=== PATIENT | male | born 1980 | race Caucasian/White ===

== ENCOUNTER 2021-02-04 21:10 | Inpatient (IN) | payer MEDICAID ==
[~2021-02-04] VITALS: Ht 170.2 cm; Wt 136.4 kg
[2021-02-04 22:29] LABS: BASOPHILS % (AUTO) 0.3 % (0-1); EOSINOPHILS % (AUTO) 0 % (0-6); HEMATOCRIT 56.4 % (42.0-52.0); LYMPHOCYTES # (AUTO) 0.6 X10'3 (1.1-4.8); LYMPHOCYTES % (AUTO) 7.2 % (21-51); MEAN CORPUSCULAR HEMOGLOBIN 35.3 PG (27.0-31.0); MEAN CORPUSCULAR HGB CONC 34.3 g/dL (33.0-36.5); MEAN CORPUSCULAR VOLUME 102.8 FL (78-98); MEAN PLATELET VOLUME 9.1 FL (7.4-10.4); MONOCYTES # (AUTO) 0.5 X10'3 (0-0.9); MONOCYTES % (AUTO) 6.2 % (2-12); NEUTROPHILS # (AUTO) 6.6 X10'3 (1.8-7.7); NEUTROPHILS % (AUTO) 86.3 % (42-75); PLATELET COUNT 178 X10'3 (140-440); RED BLOOD COUNT 5.49 X10'6 (4.70-6.10); RED CELL DISTRIBUTION WIDTH 13.6 % (11.5-14.5); WHITE BLOOD COUNT 7.7 X10'3 (4.5-11.0)
[2021-02-04 22:35] LABS: HEMOGLOBIN 19.4 g/dl (14.0-17.9)
[2021-02-04] MEDS ORDERED: normal saline 1000ML IV soln IVB ONE (22:45)
[2021-02-04] MEDS ORDERED: azithromycin/NS 500mg/250ml 250 ML IV ONE (22:45)
[2021-02-04] MEDS ORDERED: CefTRIAXone/D5W-Rocephin 1gm 50 ML IV ONE (22:45)
[2021-02-04 22:47] LABS: ALANINE AMINOTRANSFERASE 26 U/L (12-78); ALBUMIN 3.2 G/DL (3.4-5.0); ALBUMIN/GLOBULIN RATIO 0.7 (1.1-1.5); ALKALINE PHOSPHATASE 71 IU/L (46-116); ANION GAP 10 (8-16); ASPARTATE AMINO TRANSFERASE 54 U/L (10-37); BILIRUBIN,TOTAL 1.1 MG/DL (0.1-1.0); BLOOD UREA NITROGEN 11 MG/DL (7-18); BUN/CREATININE RATIO 10.7 (5.4-32.0); C-REACTIVE PROTEIN 13.91 MG/DL (0.0-0.5); CALCIUM 8.2 MG/DL (8.5-10.1); CHLORIDE 100 MMOL/L (99-107); CREATININE 1.03 MG/DL (0.60-1.10); GLUCOSE 118 MG/DL (70-104); POTASSIUM 4.3 MMOL/L (3.5-5.1); SODIUM 136 MMOL/L (135-145); TOTAL CARBON DIOXIDE 26.4 MMOL/L (24-32); TOTAL PROTEIN 7.9 G/DL (6.4-8.2); eGFR 81 ML/MIN
[2021-02-04 22:53] LABS: D-DIMER 1.13 MG/L FEU (0-0.50)
--- NOTE | 2021-02-04 23:00 | NUR ---
Hospitalist at bedside for patient assessment and discussion of plan of care
[2021-02-04] MEDS ORDERED: iohexol 350MG/ML 100ml bottle IV ONE (23:03)
--- NOTE | 2021-02-04 23:15 | NUR ---
Patient taken to CT via wheelchair- tolerated transfer well.
[2021-02-04 23:54] LABS: ABG BASE EXCESS -2.9 mmol/L (-2.0-2.0); ABG OXYGEN SATURATION 94.9 % (94-97); ABG PO2 (T) 74.8 mmHg (75.0-100.0); FCOHb 0.3 % (0.0-3.9); FLOW 2 L/min; FMetHb 0.5 % (0.0-1.5); FO2Hb 94.1 % (94-97); TOTAL HEMOGLOBIN 19.8 G/dl (14.0-18.0)
[2021-02-05] MEDS ORDERED: diphenhydrAMINE 50 mg/ml inj IV PRN (01:05)
[2021-02-05] MEDS ORDERED: ondansetron 4mg rapidly disintigrating tab PO PRN (01:05)
[2021-02-05] MEDS ORDERED: morphine 2 MG/ML inj. syringe IV PRN ×2 (01:05)
[2021-02-05] MEDS ORDERED: mag hydrox/Alum hydrox/simeth 30ml oral suspension PO PRN (01:05)
[2021-02-05] MEDS ORDERED: HYDROmorphone inj. 0.5 MG/0.5 ML DISP.SYRIN IV PRN (01:05)
[2021-02-05] MEDS ORDERED: bisacodyl 10mg suppository rectal RC PRN (01:05)
[2021-02-05] MEDS ORDERED: diphenhydrAMINE 25mg capsule PO PRN (01:05)
[2021-02-05] MEDS ORDERED: ondansetron/PF 4mg/2ml inj IV PRN (01:05)
[2021-02-05] MEDS: normal saline 1000ml 1,000 ML IV SCH ×3 (01:05→21:05)
[2021-02-05] MEDS ORDERED: HYDROcodone/acetaminophen 5mg/325mg tablet PO PRN (01:05)
[2021-02-05] MEDS ORDERED: acetaminophen 650mg rectal suppository RC PRN (01:05)
[2021-02-05] MEDS ORDERED: HYDROcodone/acetaminophen 10/325mg tab PO PRN (01:05)
[2021-02-05 01:38] LABS: HEMOGLOBIN A1C 5.9 % (4.5-6.2)
[2021-02-05 01:44] LABS: PHOSPHORUS 2.7 MG/DL (2.3-4.5)
--- NOTE | 2021-02-05 01:46 | NUR ---
PER MD TOWNSEND OK TO CHANGE ADMIT ORDER TO ORTHO/NEURO FLOOR WITH TELE MONITORING
[2021-02-05] MEDS ORDERED: ipratropium/albuterol 3ml nebule NEB SCH (03:00)
[2021-02-05 04:10] VITALS: BP 146/76
--- NOTE | 2021-02-05 05:10 | NUR ---
Received report. from TEETEE Yoo 0405: Patient arrived to unit via gurney. Patient ambulated to bed. Patient went to the bathroom shortly after arrival to unit and became short of breath. Oxygen sat was 83% on 2 L, patient ended up on 6L due to having a hard time recouping. His saturations were 92% on 6L. Respiratory was paged but have not shown up at this time. Patient is in bed in with head of bed raised and continues to sat at 92%. Will continue to monitor.
--- NOTE | 2021-02-05 06:30 | NUR ---
Problems reprioritized. Patient report given, questions answered & plan of care reviewed with TEETEE Hendrix.
[2021-02-05 06:57] VITALS: BP 152/88
[2021-02-05] MEDS: pantoprazole 40mg Tablet.DR PO SCH (07:31)
[2021-02-05] MEDS: docusate sod 100mg capsule PO SCH ×2 (07:31→19:07)
[2021-02-05] MEDS: dexamethasone sod phosphate 4mg/ml inj. IV SCH ×2 (07:36→19:07)
[2021-02-05] MEDS ORDERED: heparin, porcine 5000 units/ml vial SQ SCH (08:00)
[2021-02-05] MEDS ORDERED: CefTRIAXone/D5W-Rocephin 1gm 50 ML IV SCH (08:00)
[2021-02-05] MEDS ORDERED: dexamethasone inj 6 MG in normal saline 50ml IV soln 50 ML IV SCH (08:00)
[2021-02-05] MEDS ORDERED: azithromycin/NS 500mg/250ml 250 ML IV SCH (08:00)
[2021-02-05] MEDS ORDERED: ALBUTEROL INHALER 1 PUFF/90 MCG INHALER IH SCH (09:00)
[2021-02-05] MEDS ORDERED: NO HOME MEDS (09:55)
[2021-02-05 10:00] VITALS: BP 121/67
[2021-02-05] MEDS ORDERED: REMDESIVIR (EUA) 100mg inj. 200 MG in normal saline 100ml IV soln 60 ML IV ONE (10:40)
[2021-02-05] MEDS ORDERED: REMDESIVIR (EUA) 100mg inj. 200 MG in normal saline 100ml IV soln 100 ML IV ONE (10:40)
--- NOTE | 2021-02-05 15:08 | NUR ---
Attempted to return a phone call from patient's mom Mera at [phone], no answer just ringing
--- NOTE | 2021-02-05 15:30 | NUR ---
Calorie count consult: Likely not intended to be calorie count consult. Pt denied wt loss or decrease in appetite per malnutrition risk screen with RN. Pt on a regular diet, pending documentation of PO intake. No documented edema or wounds. Will continue to follow and monitor need for nutrition intervention. Addendum: 02/05/21 at [address] Amended: Links added.
--- NOTE | 2021-02-05 15:39 | NUR ---
Paged RT requesting to change nasal cannula to high flow nasal cannula due to persistent need to high oxygen requirement
[2021-02-05 18:00] VITALS: BP 121/75
--- NOTE | 2021-02-05 18:10 | NUR ---
Patient in room ORTHO 4018. I have received report from TEETEE Gustafson and had the opportunity to ask questions and assume patient care.
--- NOTE | 2021-02-05 18:30 | NUR ---
Problems reprioritized. Patient report given, questions answered & plan of care reviewed with Vamsi KINGSLEY.
[2021-02-05] MEDS: enoxaparin 40mg/0.4ml syringe SUBCUT SCH (19:08)
[2021-02-05 22:00] VITALS: BP 137/80
[2021-02-05] MEDS: temazepam 15mg capsule PO PRN (22:10)
[2021-02-06 05:00] VITALS: BP 133/63
[2021-02-06] MEDS: ALBUTEROL INHALER 1 PUFF/90 MCG INHALER IH PRN (05:13)
[2021-02-06] MEDS: acetaminophen 325mg tablet PO PRN (05:13)
--- NOTE | 2021-02-06 05:21 | NUR ---
Paged RT: RE: Harvinder Allen RM 0462: Pt is satting 83-86% sustained on hi-flow 15L. Gave albuterol MDI, no improvement. Pt feeling short of breath. Can you please see him DAVIN? Thanks
--- NOTE | 2021-02-06 06:10 | NUR ---
Problems reprioritized. Patient report given, questions answered & plan of care reviewed with TEETEE Wilson.
--- NOTE | 2021-02-06 06:50 | NUR ---
Patient in room ORTHO 4018. I have received report from Vamsi KINGSLEY and had the opportunity to ask questions and assume patient care.
[2021-02-06 07:54] LABS: D-DIMER 0.34 MG/L FEU (0-0.50)
[2021-02-06 07:57] LABS: BASOPHILS % (AUTO) 0.2 % (0-1); EOSINOPHILS % (AUTO) 0 % (0-6); HEMATOCRIT 53.2 % (42.0-52.0); LYMPHOCYTES # (AUTO) 0.8 X10'3 (1.1-4.8); LYMPHOCYTES % (AUTO) 6.8 % (21-51); MEAN CORPUSCULAR HEMOGLOBIN 35.2 PG (27.0-31.0); MEAN CORPUSCULAR VOLUME 103.4 FL (78-98); MEAN PLATELET VOLUME 9.3 FL (7.4-10.4); MONOCYTES # (AUTO) 0.6 X10'3 (0-0.9); MONOCYTES % (AUTO) 4.9 % (2-12); NEUTROPHILS # (AUTO) 10.8 X10'3 (1.8-7.7); NEUTROPHILS % (AUTO) 88.1 % (42-75); PLATELET COUNT 256 X10'3 (140-440); RED BLOOD COUNT 5.14 X10'6 (4.70-6.10); RED CELL DISTRIBUTION WIDTH 13.5 % (11.5-14.5); WHITE BLOOD COUNT 12.3 X10'3 (4.5-11.0)
[2021-02-06] MEDS: dexamethasone sod phosphate 4mg/ml inj. IV SCH (08:00)
[2021-02-06] MEDS: docusate sod 100mg capsule PO SCH (08:00)
[2021-02-06] MEDS: pantoprazole 40mg Tablet.DR PO SCH (08:00)
[2021-02-06] MEDS: enoxaparin 40mg/0.4ml syringe SUBCUT SCH ×2 (08:00→21:00)
[2021-02-06] MEDS: REMDESIVIR (EUA) 100mg inj. 100 MG in normal saline 100ml IV soln 80 ML IV SCH (08:00)
[2021-02-06 08:09] LABS: HEMOGLOBIN 18.1 g/dl (14.0-17.9)
[2021-02-06 08:15] LABS: ALANINE AMINOTRANSFERASE 37 U/L (12-78); ALBUMIN 2.8 G/DL (3.4-5.0); ALBUMIN/GLOBULIN RATIO 0.7 (1.1-1.5); ALKALINE PHOSPHATASE 61 IU/L (46-116); ANION GAP 10 (8-16); ASPARTATE AMINO TRANSFERASE 41 U/L (10-37); BILIRUBIN,TOTAL 0.5 MG/DL (0.1-1.0); BLOOD UREA NITROGEN 11 MG/DL (7-18); BUN/CREATININE RATIO 14.5 (5.4-32.0); C-REACTIVE PROTEIN 5.46 MG/DL (0.0-0.5); CALCIUM 8.3 MG/DL (8.5-10.1); CHLORIDE 106 MMOL/L (99-107); CHOL/HDL RATIO 9.1 (0.00-4.99); CHOLESTEROL 145 MG/DL (0-200); CREATININE 0.76 MG/DL (0.60-1.10); GLUCOSE 131 MG/DL (70-104); HDL CHOLESTEROL 16 MG/DL (35-60); LACTATE DEHYDROGENASE 448 U/L (85-227); LDL CHOLESTEROL 111 MG/DL (50-100); POTASSIUM 4.3 MMOL/L (3.5-5.1); SODIUM 143 MMOL/L (135-145); TOTAL CARBON DIOXIDE 27.5 MMOL/L (24-32); TOTAL PROTEIN 7.1 G/DL (6.4-8.2); TRIGLYCERIDES 95 MG/DL (20-135); eGFR > 90 ML/MIN
--- NOTE | 2021-02-06 09:31 | NUR ---
PAGER ID: [phone] MESSAGE: Jaime Ball 4018 Frease HGB today 18.1 down from 19.4
--- NOTE | 2021-02-06 09:32 | NUR ---
Paged RT for urgent ABG orders from Dr Queen
[2021-02-06 09:57] LABS: ABG BASE EXCESS -1.4 mmol/L (-2.0-2.0); ABG HCO3 22.5 mmol/L (22.0-26.0); ABG OXYGEN SATURATION 92.9 % (94-97); ABG PO2 (T) 63.7 mmHg (75.0-100.0); ALLEN'S TEST POSITIVE; FCOHb 0.3 % (0.0-3.9); FLOW 15 L/min; FMetHb 0.3 % (0.0-1.5); FO2Hb 92.3 % (94-97); TOTAL HEMOGLOBIN 18.5 G/dl (14.0-18.0)
[2021-02-06 10:00] VITALS: BP 109/72
--- NOTE | 2021-02-06 14:31 | NUR ---
Tried to return patients sister Ella's call l/w on v/m to call back
[2021-02-06 18:00] VITALS: BP 142/93
--- NOTE | 2021-02-06 18:21 | NUR ---
Problems reprioritized. Patient report given, questions answered & plan of care reviewed with Mariel KINGSLEY.
--- NOTE | 2021-02-06 18:30 | NUR ---
Patient in room ORTHO 4018. I have received report from Katie KINGSLEY and had the opportunity to ask questions and assume patient care.
[2021-02-06] MEDS ORDERED: dexamethasone 4mg/ml inj IM SCH (20:00)
[2021-02-06] MEDS: dexamethasone 4mg/ml inj IV SCH (21:00)
[2021-02-06 22:00] VITALS: BP 138/87
[2021-02-06] MEDS: temazepam 15mg capsule PO PRN (22:11)
[2021-02-07 05:54] LABS: D-DIMER 0.26 MG/L FEU (0-0.50)
[2021-02-07 05:58] LABS: ANION GAP 6 (8-16); BASOPHILS % (AUTO) 0.1 % (0-1); BLOOD UREA NITROGEN 9 MG/DL (7-18); CHLORIDE 105 MMOL/L (99-107); CREATININE 0.69 MG/DL (0.60-1.10); EOSINOPHILS % (AUTO) 0 % (0-6); GLUCOSE 153 MG/DL (70-104); HEMATOCRIT 53.5 % (42.0-52.0); LYMPHOCYTES # (AUTO) 0.7 X10'3 (1.1-4.8); LYMPHOCYTES % (AUTO) 6.9 % (21-51); MEAN CORPUSCULAR HEMOGLOBIN 35.3 PG (27.0-31.0); MEAN CORPUSCULAR HGB CONC 33.7 g/dL (33.0-36.5); MEAN CORPUSCULAR VOLUME 104.6 FL (78-98); MEAN PLATELET VOLUME 9.1 FL (7.4-10.4); MONOCYTES # (AUTO) 0.6 X10'3 (0-0.9); MONOCYTES % (AUTO) 5.4 % (2-12); NEUTROPHILS # (AUTO) 8.9 X10'3 (1.8-7.7); NEUTROPHILS % (AUTO) 87.6 % (42-75); PLATELET COUNT 287 X10'3 (140-440); POTASSIUM 4.3 MMOL/L (3.5-5.1); RED BLOOD COUNT 5.11 X10'6 (4.70-6.10); RED CELL DISTRIBUTION WIDTH 13.1 % (11.5-14.5); SODIUM 141 MMOL/L (135-145); TOTAL CARBON DIOXIDE 30.4 MMOL/L (24-32); WHITE BLOOD COUNT 10.1 X10'3 (4.5-11.0)
[2021-02-07 05:59] LABS: ALANINE AMINOTRANSFERASE 29 U/L (12-78); ALBUMIN 2.7 G/DL (3.4-5.0); ALBUMIN/GLOBULIN RATIO 0.7 (1.1-1.5); ALKALINE PHOSPHATASE 62 IU/L (46-116); ASPARTATE AMINO TRANSFERASE 47 U/L (10-37); BILIRUBIN,TOTAL 0.4 MG/DL (0.1-1.0); C-REACTIVE PROTEIN 2.38 MG/DL (0.0-0.5); CALCIUM 8.2 MG/DL (8.5-10.1); LACTATE DEHYDROGENASE 515 U/L (85-227); TOTAL PROTEIN 6.8 G/DL (6.4-8.2); eGFR > 90 ML/MIN
[2021-02-07 06:00] VITALS: BP 137/96
--- NOTE | 2021-02-07 06:22 | NUR ---
Problems reprioritized. Patient report given, questions answered & plan of care reviewed with Paloma KINGSLEY.
[2021-02-07] MEDS: acetaminophen 325mg tablet PO PRN (06:36)
[2021-02-07] MEDS: REMDESIVIR (EUA) 100mg inj. 100 MG in normal saline 100ml IV soln 80 ML IV SCH (09:53)
[2021-02-07] MEDS: pantoprazole 40mg Tablet.DR PO SCH (09:54)
[2021-02-07] MEDS: dexamethasone 4mg/ml inj IV SCH ×2 (09:54→21:06)
[2021-02-07] MEDS: enoxaparin 40mg/0.4ml syringe SUBCUT SCH ×2 (09:56→21:07)
[2021-02-07 12:38] VITALS: BP 120/83
--- NOTE | 2021-02-07 18:20 | NUR ---
Problems reprioritized. Patient report given, questions answered & plan of care reviewed with Danielle KINGSLEY.
[2021-02-07 19:00] VITALS: BP 137/78
[2021-02-07 22:00] VITALS: BP 125/74
--- NOTE | 2021-02-07 23:10 | NUR ---
RT paged to help with refilling water on high flow salter. Upon RT arrival, RN states pt also keeps pulling his nasal canula off. Pt assessed and is in increased respiratory distress, nasal cannula was pulled off and spo2 60% on room air. Immediately placed pt back on salter high flow at 15+ liters. Pt was still not improving past 75%. I then placed a non-rebreather mask at 15 lpm over his high flow in his mouth and spo2 increased to 94%. Spo2 on observation seems to stay between 88%-91% now. Albuterol MDI 2 puffs also given. RN notified and will continue to monitor
[2021-02-07] MEDS: ALBUTEROL INHALER 1 PUFF/90 MCG INHALER IH PRN (23:14)
[2021-02-08] MEDS ORDERED: benzocaine/menthol oral lozeng 1 EACH BOX MM PRN (01:20)
[2021-02-08] MEDS: temazepam 15mg capsule PO PRN (01:27)
[2021-02-08 05:45] LABS: BASOPHILS % (AUTO) 0.3 % (0-1); EOSINOPHILS % (AUTO) 0 % (0-6); HEMATOCRIT 55.3 % (42.0-52.0); LYMPHOCYTES # (AUTO) 0.8 X10'3 (1.1-4.8); LYMPHOCYTES % (AUTO) 7.9 % (21-51); MEAN CORPUSCULAR HEMOGLOBIN 35.2 PG (27.0-31.0); MEAN CORPUSCULAR HGB CONC 33.7 g/dL (33.0-36.5); MEAN CORPUSCULAR VOLUME 104.5 FL (78-98); MEAN PLATELET VOLUME 8.8 FL (7.4-10.4); MONOCYTES # (AUTO) 0.6 X10'3 (0-0.9); MONOCYTES % (AUTO) 5.5 % (2-12); NEUTROPHILS # (AUTO) 8.8 X10'3 (1.8-7.7); NEUTROPHILS % (AUTO) 86.3 % (42-75); PLATELET COUNT 316 X10'3 (140-440); RED BLOOD COUNT 5.29 X10'6 (4.70-6.10); RED CELL DISTRIBUTION WIDTH 13.2 % (11.5-14.5); WHITE BLOOD COUNT 10.2 X10'3 (4.5-11.0)
[2021-02-08 05:55] LABS: HEMOGLOBIN 18.6 g/dl (14.0-17.9)
[2021-02-08 06:08] LABS: ALANINE AMINOTRANSFERASE 48 U/L (12-78); ALBUMIN 2.8 G/DL (3.4-5.0); ALBUMIN/GLOBULIN RATIO 0.7 (1.1-1.5); ALKALINE PHOSPHATASE 72 IU/L (46-116); ANION GAP 3 (8-16); ASPARTATE AMINO TRANSFERASE 57 U/L (10-37); BILIRUBIN,TOTAL 0.5 MG/DL (0.1-1.0); BLOOD UREA NITROGEN 9 MG/DL (7-18); BUN/CREATININE RATIO 10.7 (5.4-32.0); CALCIUM 8.3 MG/DL (8.5-10.1); CHLORIDE 104 MMOL/L (99-107); CREATININE 0.84 MG/DL (0.60-1.10); GLUCOSE 131 MG/DL (70-104); LACTATE DEHYDROGENASE 648 U/L (85-227); POTASSIUM 4.6 MMOL/L (3.5-5.1); SODIUM 141 MMOL/L (135-145); TOTAL CARBON DIOXIDE 33.9 MMOL/L (24-32); TOTAL PROTEIN 7.1 G/DL (6.4-8.2); eGFR > 90 ML/MIN
[2021-02-08 06:22] LABS: D-DIMER 0.62 MG/L FEU (0-0.50)
--- NOTE | 2021-02-08 06:50 | NUR ---
Attempted to call night time hospitalist but cell phone number was not correct, patient is SOB respiratory rate in the 30s. Alert and oriented, VSS. Will call day time MD and anticipate new orders.
--- NOTE | 2021-02-08 06:50 | NUR ---
Patient in room ORTHO 4018. I have received report from Marti KINGSLEY and had the opportunity to ask questions and assume patient care.
[2021-02-08 06:51] VITALS: BP 101/79
--- NOTE | 2021-02-08 07:07 | NUR ---
PAGER ID: [phone] MESSAGE: [phone] Tiffany, here with darien gamboa. Increased work of breathing, now on 30 liters of oxygen. Respiratory rate in the 30s Oxygen dropped in the 60s. Can i get an ABG ordered and put him on a tele with a continuous pulse ox? Joshua Moreira Addendum: 02/08/21 at 0715 by Garima Cochran RN Per Gabrielu place patient on bipap.
--- NOTE | 2021-02-08 07:16 | NUR ---
Placed page to RT to place patient on Bi-PAP.
[2021-02-08] MEDS: pantoprazole 40mg Tablet.DR PO SCH (07:30)
[2021-02-08] MEDS: enoxaparin 40mg/0.4ml syringe SUBCUT SCH ×2 (08:00→19:34)
[2021-02-08] MEDS: dexamethasone 4mg/ml inj IV SCH ×2 (08:00→19:34)
[2021-02-08] MEDS: REMDESIVIR (EUA) 100mg inj. 100 MG in normal saline 100ml IV soln 80 ML IV SCH (08:00)
--- NOTE | 2021-02-08 09:00 | NUR ---
Upon arriving for my shift this morning patient was in noticeable respiratory distress with a respiratory rate in the 30s on 15 liters/min of high flow on a salter and 15 liters/min on a non-rebreather. Night time hospitalist was never made aware of patients decompensation overnight. Paged Dr. Castle first thing this morning and received orders to place on bi-pap, he did not want blood gases at this time. Respiratory came to evaluate patient asking questions about bi-pap need and why we are not doing blood gases. Upon application of cpap patient was noticeably more comfortable, work of breathing decreased and he stated he felt much more comfortable. Dr. Barnett came to see patient and noted his decompensation stated that if he continues to require more oxygen he may need to go to the ICU. Patient is resting comfortably at this time, respiratory rate 26, o2 90-96% on a cpap with 70% fi02.
[2021-02-08 10:27] LABS: ABG BASE EXCESS 4.5 mmol/L (-2.0-2.0); ABG HCO3 30.5 mmol/L (22.0-26.0); ABG OXYGEN SATURATION 93.3 % (94-97); ABG PCO2 (T) 48.6 mmHg (35.0-48.0); ABG PO2 (T) 65.4 mmHg (75.0-100.0); ALLEN'S TEST POSITIVE; FCOHb 0.3 % (0.0-3.9); FMetHb 0.4 % (0.0-1.5); FO2Hb 92.6 % (94-97); TOTAL HEMOGLOBIN 19.5 G/dl (14.0-18.0)
[2021-02-08 12:22] VITALS: BP 124/71
--- NOTE | 2021-02-08 12:22 | NUR ---
PAGER ID: [phone] MESSAGE: [phone] Frease, respiratory rate is in the high 40s low 50s. 02 saturations are still stable on cpap, can he get a low dose of Ativan or morphine to help with his work of breathing? phillip [phone]
[2021-02-08] MEDS: morphine 2 MG/ML inj. syringe IV PRN ×2 (12:35→20:13)
[2021-02-08] MEDS: acetaminophen 325mg tablet PO PRN (12:36)
--- NOTE | 2021-02-08 12:57 | NUR ---
After receiving an order for IV morphine to decrease the patients work of breathing as his respiratory rate was 45 respirations per minute I went in to administer this and tylenol for fever. While in the room the patient asked if he could take a break from the CPAP mask to urinate, took off CPAP and applied 15 liters on a high flow salter with 15 liters on a non rebreather as well, when the patient stood up to urinate his heart rate went from 65 to 110 and oxygen quickly decreased to 68. Patient sat back down on the bed, cyanotic in the face, instructed the patient to try to slow his breathing down. oxygen saturations did recover slowly back up to 85, switched over to the CPAP and increased to 100% fi02 until saturations maintained in the 90s. Resting comfortably now, cpap back at 70% fi02.
--- NOTE | 2021-02-08 13:04 | NUR ---
PAGER ID: [phone] MESSAGE: [phone] Tiffany, went in to help use the urinal and his heart rate went from 60 to 110, 02 dropped to 68. Back up to 93% now, can I place him on a tele please? phillip [phone]
--- NOTE | 2021-02-08 14:44 | NUR ---
Patient is resting comfortably now after receiving IV morphine to help with work of breathing. Hospitalist does not feel that it is necessary to place on tele even with tachycardia on exertion. Monitoring patient closely.
[2021-02-08 17:04] VITALS: BP 133/81
--- NOTE | 2021-02-08 18:27 | NUR ---
Problems reprioritized. Patient report given, questions answered & plan of care reviewed with Netta KINGSLEY.
[2021-02-08 22:00] VITALS: BP 126/65
[2021-02-09 05:57] LABS: BASOPHILS % (AUTO) 0.2 % (0-1); EOSINOPHILS % (AUTO) 0 % (0-6); HEMATOCRIT 51.3 % (42.0-52.0); HEMOGLOBIN 17.5 g/dl (14.0-17.9); LYMPHOCYTES % (AUTO) 9.6 % (21-51); MEAN CORPUSCULAR HEMOGLOBIN 35.5 PG (27.0-31.0); MEAN CORPUSCULAR HGB CONC 34.1 g/dL (33.0-36.5); MEAN CORPUSCULAR VOLUME 103.9 FL (78-98); MONOCYTES # (AUTO) 0.7 X10'3 (0-0.9); MONOCYTES % (AUTO) 6.4 % (2-12); NEUTROPHILS # (AUTO) 8.8 X10'3 (1.8-7.7); NEUTROPHILS % (AUTO) 83.8 % (42-75); PLATELET COUNT 330 X10'3 (140-440); RED BLOOD COUNT 4.94 X10'6 (4.70-6.10); RED CELL DISTRIBUTION WIDTH 13.3 % (11.5-14.5); WHITE BLOOD COUNT 10.5 X10'3 (4.5-11.0)
[2021-02-09 06:11] LABS: ALANINE AMINOTRANSFERASE 55 U/L (12-78); ALBUMIN 2.5 G/DL (3.4-5.0); ALBUMIN/GLOBULIN RATIO 0.6 (1.1-1.5); ALKALINE PHOSPHATASE 65 IU/L (46-116); ANION GAP 7 (8-16); ASPARTATE AMINO TRANSFERASE 60 U/L (10-37); BILIRUBIN,TOTAL 0.6 MG/DL (0.1-1.0); BLOOD UREA NITROGEN 21 MG/DL (7-18); BUN/CREATININE RATIO 26.6 (5.4-32.0); C-REACTIVE PROTEIN 0.85 MG/DL (0.0-0.5); CALCIUM 8.2 MG/DL (8.5-10.1); CHLORIDE 102 MMOL/L (99-107); CREATININE 0.79 MG/DL (0.60-1.10); GLUCOSE 176 MG/DL (70-104); LACTATE DEHYDROGENASE 474 U/L (85-227); POTASSIUM 4.5 MMOL/L (3.5-5.1); SODIUM 138 MMOL/L (135-145); TOTAL CARBON DIOXIDE 28.9 MMOL/L (24-32); TOTAL PROTEIN 6.4 G/DL (6.4-8.2); eGFR > 90 ML/MIN
[2021-02-09 06:27] LABS: D-DIMER 0.47 MG/L FEU (0-0.50)
[2021-02-09 06:39] VITALS: BP 146/86
[2021-02-09] MEDS: dexamethasone 4mg/ml inj IV SCH ×2 (07:41→18:57)
[2021-02-09] MEDS: pantoprazole 40mg Tablet.DR PO SCH (07:42)
[2021-02-09] MEDS: REMDESIVIR (EUA) 100mg inj. 100 MG in normal saline 100ml IV soln 80 ML IV SCH (07:42)
[2021-02-09] MEDS: enoxaparin 40mg/0.4ml syringe SUBCUT SCH ×2 (07:42→18:57)
[2021-02-09] MEDS: morphine 2 MG/ML inj. syringe IV PRN ×2 (09:05→16:42)
[2021-02-09 09:41] VITALS: BP 138/99
--- NOTE | 2021-02-09 12:33 | NUR ---
Titrated patients fi02 down to 50% from 60% this morning.
[2021-02-09 13:00] VITALS: BP 133/89
--- NOTE | 2021-02-09 15:51 | NUR ---
Nutrition Consult"pt covid cpap dependent cant' take off for long periods of time": Pt admit DX COVID-19 PNA, HTN, polycythemia, and obesity hypoventilation syndrome per EMR. PO 75-100% avg regular diet this admit outside of 0% two meals yesterday following period of increased SOB though returned to 75% so far today. Pt currently meeting nutrient needs. LBM 02/05; would benefit from routine bowel care this admit. Will continue to monitor. Rec: 1. continue regular diet 2. monitor for ONS needs IF PO declines 3. routine bowel care 4. weekly wts Addendum: 02/09/21 at [address] Amended: Links added.
--- NOTE | 2021-02-09 16:00 | NUR ---
PAGER ID: [phone] MESSAGE: [phone] Tiffany, respiratory therapist wants to change him from CPAP to BIpap mode on the bipap, can I order a blood gas in an hour once we change him over? thanks, phillip [phone]
--- NOTE | 2021-02-09 16:06 | NUR ---
Respiratory at bedside, wanting to place patient on bipap instead of cpap because he is more comfortable breathing on bipap mode. Respiratory rate in the 40s on CPAP and on bipap he is breathing 25-30 respirations/minute. Advised to do what he thought was best for the patient and his comfort, changed to bipap and will repeat blood gases in one hour.
--- NOTE | 2021-02-09 17:11 | NUR ---
RT at bedside to draw blood gases, I increased the fi02 back to 60% as his oxygen saturation was 87, back up to 92 now however on 60% fi02.
[2021-02-09 17:21] LABS: ABG HCO3 28.2 mmol/L (22.0-26.0); ABG OXYGEN SATURATION 91.8 % (94-97); ABG PCO2 (T) 44.3 mmHg (35.0-48.0); ABG PO2 (T) 62.3 mmHg (75.0-100.0); ALLEN'S TEST POSITIVE; FCOHb 0.2 % (0.0-3.9); FMetHb 0.5 % (0.0-1.5); FO2Hb 91.2 % (94-97); RESPIRATORY RATE 20 b/min; TIDAL VOLUME 563 mL; TOTAL HEMOGLOBIN 19.9 G/dl (14.0-18.0)
[2021-02-09] MEDS: acetaminophen 325mg tablet PO PRN (17:50)
--- NOTE | 2021-02-09 18:14 | NUR ---
Problems reprioritized. Patient report given, questions answered & plan of care reviewed with Netta KINGSLEY.
[2021-02-09 18:16] VITALS: BP 114/62
[2021-02-09] MEDS ORDERED: LIDOcaine 2% 10ml TOPICAL JELLY (Urojet) TP ONE (18:40)
[2021-02-09 22:00] VITALS: BP 125/78
[2021-02-10] MEDS: morphine 2 MG/ML inj. syringe IV PRN ×3 (01:05→20:42)
[2021-02-10 05:52] VITALS: BP 129/77
--- NOTE | 2021-02-10 06:04 | NUR ---
Patient in room ORTHO 4018. I have received report from Netta KINGSLEY and had the opportunity to ask questions and assume patient care.
[2021-02-10 06:12] LABS: D-DIMER 0.36 MG/L FEU (0-0.50)
[2021-02-10 06:13] LABS: BASOPHILS % (AUTO) 0.1 % (0-1); EOSINOPHILS % (AUTO) 0.2 % (0-6); HEMATOCRIT 52.2 % (42.0-52.0); HEMOGLOBIN 17.7 g/dl (14.0-17.9); LYMPHOCYTES # (AUTO) 1.3 X10'3 (1.1-4.8); LYMPHOCYTES % (AUTO) 10.6 % (21-51); MEAN CORPUSCULAR HEMOGLOBIN 35.2 PG (27.0-31.0); MEAN CORPUSCULAR VOLUME 103.7 FL (78-98); MONOCYTES # (AUTO) 0.6 X10'3 (0-0.9); MONOCYTES % (AUTO) 5.2 % (2-12); NEUTROPHILS # (AUTO) 10.1 X10'3 (1.8-7.7); NEUTROPHILS % (AUTO) 83.9 % (42-75); PLATELET COUNT 398 X10'3 (140-440); RED BLOOD COUNT 5.03 X10'6 (4.70-6.10); RED CELL DISTRIBUTION WIDTH 13.3 % (11.5-14.5); WHITE BLOOD COUNT 12.1 X10'3 (4.5-11.0)
[2021-02-10 06:29] LABS: ALANINE AMINOTRANSFERASE 48 U/L (12-78); ALBUMIN 2.6 G/DL (3.4-5.0); ALBUMIN/GLOBULIN RATIO 0.7 (1.1-1.5); ALKALINE PHOSPHATASE 66 IU/L (46-116); ANION GAP 5 (8-16); ASPARTATE AMINO TRANSFERASE 42 U/L (10-37); BILIRUBIN,TOTAL 0.5 MG/DL (0.1-1.0); BLOOD UREA NITROGEN 19 MG/DL (7-18); BUN/CREATININE RATIO 23.8 (5.4-32.0); C-REACTIVE PROTEIN 0.39 MG/DL (0.0-0.5); CALCIUM 8.3 MG/DL (8.5-10.1); CHLORIDE 103 MMOL/L (99-107); GLUCOSE 151 MG/DL (70-104); LACTATE DEHYDROGENASE 377 U/L (85-227); POTASSIUM 4.3 MMOL/L (3.5-5.1); SODIUM 138 MMOL/L (135-145); TOTAL CARBON DIOXIDE 30.4 MMOL/L (24-32); TOTAL PROTEIN 6.6 G/DL (6.4-8.2); eGFR > 90 ML/MIN
[2021-02-10] MEDS: enoxaparin 40mg/0.4ml syringe SUBCUT SCH ×2 (08:07→20:14)
[2021-02-10] MEDS: dexamethasone 4mg/ml inj IV SCH ×2 (08:07→20:13)
[2021-02-10] MEDS: pantoprazole 40mg Tablet.DR PO SCH (08:07)
[2021-02-10 09:03] LABS: CLARITY,URINE CLOUDY (Clear); COLOR,URINE YELLOW (Yellow); GLUCOSE, URINE NEGATIVE (Neg); KETONES,URINE NEGATIVE (Neg); LEUKOCYTE ESTERASE ,URINE NEGATIVE (Neg); NITRITES, URINE NEGATIVE (Neg); OCCULT BLOOD,URINE LARGE (Neg); PH,URINE 7.5 (4.8-8.0); PROTEIN,URINE 30 mg/dl (Neg)
[2021-02-10 09:09] LABS: URINE AMPHETAMINE SCREEN NEGATIVE (Neg); URINE BARBITUATE SCREEN NEGATIVE (Neg); URINE BENZODIAZEPINES SCREEN NEGATIVE (Neg); URINE CANNABINOID SCREEN POSITIVE (Neg); URINE COCAINE SCREEN NEGATIVE (Neg); URINE METHADONE SCREEN NEGATIVE (Neg); URINE OPIATE SCREEN POSITIVE (Neg); URINE PHENCYCLIDINE SCREEN NEGATIVE (Neg)
[2021-02-10 09:13] LABS: UA COLLECTION TYPE FOLEY CATH
[2021-02-10 09:15] LABS: RBC,URINE TNTC /HPF (0-2); WBC,URINE 0-4 /HPF (0-4)
[2021-02-10 09:17] LABS: AMORPHOUS PHOSPHATES 4+; BACTERIA,URINE FEW /HPF (Neg); SQUAMOUS EPITHELIAL CELL,UR NONE SEEN /LPF (FEW)
[2021-02-10 10:20] VITALS: BP 115/72
--- NOTE | 2021-02-10 13:40 | NUR ---
Respiratory changed patient over from bipap to high flow nasal cannula with a salter at 15l/min. Patient is tolerating well with minimal respiratory distress oxygen saturations are 88-92%. Patient needs to be on bipap and or cpap at night however due to sleep apnea.
[2021-02-10] MEDS: ALBUTEROL INHALER 1 PUFF/90 MCG INHALER IH PRN (15:26)
[2021-02-10 17:25] VITALS: BP 128/71
--- NOTE | 2021-02-10 18:13 | NUR ---
Problems reprioritized. Patient report given, questions answered & plan of care reviewed with Marti KINGSLEY.
[2021-02-10] MEDS: docusate sod 100mg capsule PO SCH (20:13)
[2021-02-10] MEDS: sennosides/docusate sodium tablet PO SCH (20:13)
[2021-02-10] MEDS: temazepam 15mg capsule PO PRN (20:42)
[2021-02-10 22:00] VITALS: BP 122/76
[2021-02-11] MEDS: morphine 2 MG/ML inj. syringe IV PRN ×2 (04:36→10:27)
[2021-02-11 06:00] VITALS: BP 139/88
[2021-02-11 06:12] LABS: D-DIMER 0.39 MG/L FEU (0-0.50)
[2021-02-11 06:22] LABS: C-REACTIVE PROTEIN 0.38 MG/DL (0.0-0.5)
[2021-02-11] MEDS: ALBUTEROL INHALER 1 PUFF/90 MCG INHALER IH PRN (08:26)
[2021-02-11 10:00] VITALS: BP 124/90
--- NOTE | 2021-02-11 10:00 | NUR ---
MD states that FC was placed because the pt was too exhausted to use urinal. Pt states he is willing to try less invasive methods such as condom cath, now feeling much stronger than he did when the FC was placed. Madsen cath DCd and condom cath placed. Pt tolerated well Addendum: 02/11/21 at 1536 by Renuka Villalobos RN Amended: Links added.
[2021-02-11] MEDS: magnesium hydroxide 30ml (MOM) UD suspension PO PRN (10:25)
[2021-02-11] MEDS: pantoprazole 40mg Tablet.DR PO SCH (10:25)
[2021-02-11] MEDS: docusate sod 100mg capsule PO SCH ×2 (10:25→19:22)
[2021-02-11] MEDS: enoxaparin 40mg/0.4ml syringe SUBCUT SCH ×2 (10:26→19:23)
[2021-02-11] MEDS: dexamethasone 4mg/ml inj IV SCH ×2 (10:26→19:22)
[2021-02-11 14:00] VITALS: BP 115/65
--- NOTE | 2021-02-11 17:18 | NUR ---
UP TO URINATE- DESAT DOWN TO 77 BUT RECOVERED WELL ON 15 L FLUSH. BOGDAN TO 88-91 ON 15 L
[2021-02-11 18:00] VITALS: BP 139/86
--- NOTE | 2021-02-11 18:37 | NUR ---
Patient in room ORTHO 4018. I have received report from TEETEE Lentz and had the opportunity to ask questions and assume patient care.
[2021-02-11] MEDS: sennosides/docusate sodium tablet PO SCH (19:22)
[2021-02-11] MEDS: acetaminophen 325mg tablet PO PRN (19:23)
[2021-02-11 22:00] VITALS: BP 134/71
[2021-02-12] VITALS (7 sets, daily range): BP systolic 111–154; BP diastolic 46–101
--- NOTE | 2021-02-12 06:23 | NUR ---
Problems reprioritized. Patient report given, questions answered & plan of care reviewed with TEETEE Zazueta.
--- NOTE | 2021-02-12 07:11 | NUR ---
Patient in room ORTHO 4018. I have received report from Angela jennings and had the opportunity to ask questions and assume patient care.
[2021-02-12] MEDS: docusate sod 100mg capsule PO SCH ×2 (07:12→19:17)
[2021-02-12] MEDS: pantoprazole 40mg Tablet.DR PO SCH (07:12)
[2021-02-12] MEDS: enoxaparin 40mg/0.4ml syringe SUBCUT SCH ×2 (07:13→19:18)
[2021-02-12] MEDS: dexamethasone 4mg/ml inj IV SCH ×2 (07:13→19:17)
--- NOTE | 2021-02-12 09:25 | NUR ---
Per conversation with Dr. ERNANDEZ, he stated he wanted to turn pts oxygen down as he looked comfortable. Expressed concern as pt is still off and on BIPAP and SPO2 is 93% on 15L at best. Turned pt to 13L hiflow with pt stating he was SOB and could not breathe, RR increased. Turned pt back to 15L for pt comfort and pt not tolerating lowering oxygen. Reported to Reza KINGSLEYbrine room laborer Addendum: 02/12/21 at 0934 by Maya Carmona RT Amended: Links added.
[2021-02-12 11:17] LABS: C-REACTIVE PROTEIN 0.83 MG/DL (0.0-0.5)
[2021-02-12] MEDS: magnesium hydroxide 30ml (MOM) UD suspension PO PRN (13:00)
--- NOTE | 2021-02-12 13:52 | NUR ---
Wound care POC. Spoke with primary nurse about patient's skin on bridge of nose. She states there was no report of any wounds and she had not noticed any discoloration to the area. No photo in chart. Pt still on BiPap at night but is on NC during the day. Discharging from WOC list.
[2021-02-12] MEDS: salt irrigation nasal spray 45 ML SPRAY NS PRN (15:12)
--- NOTE | 2021-02-12 15:32 | NUR ---
Pt is very pleasant. Pt still has intermittent productive cough, clear sputum. Pt is aware of current plan to try and decrease oxygen lvl requirement however when RT turned pts oxygen down pt states he feels like he cannot breath. Pt is currently on High flow Nasal cannula at 15. Pt has had good urinary output this shift. Milk of magnesia was given to pt for lack of BM. Pt has a good appetite. Will continue to monitor patient.
--- NOTE | 2021-02-12 18:15 | NUR ---
Patient in room ORTHO 4018. I have received report from TEETEE Zazueta and had the opportunity to ask questions and assume patient care.
[2021-02-12] MEDS: sennosides/docusate sodium tablet PO SCH (19:17)
[2021-02-13 02:00] VITALS: BP 124/78
[2021-02-13 06:00] VITALS: BP 149/82
--- NOTE | 2021-02-13 06:26 | NUR ---
Problems reprioritized. Patient report given, questions answered & plan of care reviewed with TEETEE Zazueta.
--- NOTE | 2021-02-13 06:44 | NUR ---
Patient in room ORTHO 4018. I have received report from Milton Bloom and had the opportunity to ask questions and assume patient care.
[2021-02-13] MEDS: salt irrigation nasal spray 45 ML SPRAY NS PRN ×2 (06:48→15:18)
[2021-02-13] MEDS: magnesium hydroxide 30ml (MOM) UD suspension PO PRN (08:07)
[2021-02-13] MEDS: pantoprazole 40mg Tablet.DR PO SCH (08:08)
[2021-02-13] MEDS: enoxaparin 40mg/0.4ml syringe SUBCUT SCH ×2 (08:08→19:48)
[2021-02-13] MEDS: docusate sod 100mg capsule PO SCH ×2 (08:08→19:47)
[2021-02-13] MEDS: dexamethasone 4mg/ml inj IV SCH ×2 (08:08→19:47)
[2021-02-13] MEDS: morphine 2 MG/ML inj. syringe IV PRN (09:54)
[2021-02-13 10:00] VITALS: BP 121/76
[2021-02-13 14:00] VITALS: BP 117/75
[2021-02-13] MEDS: acetaminophen 325mg tablet PO PRN (17:20)
[2021-02-13 18:00] VITALS: BP 139/82
--- NOTE | 2021-02-13 18:10 | NUR ---
Patient in room ORTHO 4018. I have received report from TEETEE Zazueta and had the opportunity to ask questions and assume patient care.
--- NOTE | 2021-02-13 18:52 | NUR ---
Problems reprioritized. Patient report given, questions answered & plan of care reviewed with anai jennings.
[2021-02-13] MEDS: sennosides/docusate sodium tablet PO SCH (21:00)
[2021-02-13 22:00] VITALS: BP 138/79
[2021-02-14 02:00] VITALS: BP 114/68
[2021-02-14 06:30] VITALS: BP 114/68
--- NOTE | 2021-02-14 06:40 | NUR ---
Patient in room ORTHO 4018. I have received report from TEETEE Miller and had the opportunity to ask questions and assume patient care.
--- NOTE | 2021-02-14 07:00 | NUR ---
Problems reprioritized. Patient report given, questions answered & plan of care reviewed with TEETEE Bates.
[2021-02-14 10:00] VITALS: BP 140/78
--- NOTE | 2021-02-14 10:38 | NUR ---
Reassessment: Pt PO ~100% avg mostly regular diet meeting needs. LBM 02/13. Noted MCV 103.7; would benefit from folic acid and B12 supplementation if MD agreeable. Will continue to monitor. Rec: 1. continue regular diet 2. B12/folic acid supplementation if MD agreeable; MCV 103.7 3. routine bowel care 4. weekly wts Addendum: 02/14/21 at [address] Amended: Links added.
[2021-02-14] MEDS: dexamethasone 4mg/ml inj IV SCH ×2 (10:57→17:26)
[2021-02-14] MEDS: docusate sod 100mg capsule PO SCH ×2 (10:57→22:29)
[2021-02-14] MEDS: pantoprazole 40mg Tablet.DR PO SCH (10:57)
[2021-02-14] MEDS: enoxaparin 40mg/0.4ml syringe SUBCUT SCH ×2 (10:57→22:29)
[2021-02-14] MEDS: acetaminophen 325mg tablet PO PRN ×2 (11:06→17:25)
[2021-02-14 14:00] VITALS: BP 145/79
[2021-02-14 18:00] VITALS: BP 149/85
--- NOTE | 2021-02-14 18:10 | NUR ---
Problems reprioritized. Patient report given, questions answered & plan of care reviewed with TEETEE Pierre.
[2021-02-14 22:00] VITALS: BP 155/77
[2021-02-14] MEDS: sennosides/docusate sodium tablet PO SCH (22:29)
[2021-02-15 06:00] VITALS: BP 125/73
[2021-02-15] MEDS: ALBUTEROL INHALER 1 PUFF/90 MCG INHALER IH PRN ×3 (08:00→15:25)
[2021-02-15] MEDS: docusate sod 100mg capsule PO SCH ×2 (08:04→20:51)
[2021-02-15] MEDS: enoxaparin 40mg/0.4ml syringe SUBCUT SCH ×2 (08:04→20:52)
[2021-02-15] MEDS: pantoprazole 40mg Tablet.DR PO SCH (08:04)
[2021-02-15] MEDS: dexamethasone 4mg/ml inj IV SCH (08:04)
[2021-02-15 10:00] VITALS: BP 133/77
[2021-02-15] MEDS: acetaminophen 325mg tablet PO PRN (11:06)
[2021-02-15 17:00] VITALS: BP 137/88
--- NOTE | 2021-02-15 17:14 | NUR ---
PAGER ID: [phone] MESSAGE: Misha [phone] Re: [id number] Fre[address] patient has a wound on back of neck draining brown foul smelling fluid can I send for cultures? Addendum: 02/15/21 at 1747 by Katie Henao RN Dr Castle here to see patient and received orders to send for cultures
[2021-02-15] MEDS ORDERED: DOXYCYCLINE 100MG CAPSULE PO SCH (17:45)
--- NOTE | 2021-02-15 17:47 | NUR ---
PAGER ID: [phone] MESSAGE: Misha [phone] Re: [place] 4018 is the doxycycline for the wound or UTI like it says just clarifying
--- NOTE | 2021-02-15 18:41 | NUR ---
Problems reprioritized. Patient report given, questions answered & plan of care reviewed with Ignacio KINGSLEY.
[2021-02-15] MEDS: sennosides/docusate sodium tablet PO SCH (20:51)
[2021-02-15] MEDS: DOXYCYCLINE 100MG CAPSULE PO SCH (20:51)
[2021-02-15 22:00] VITALS: BP 156/98
[2021-02-15] MEDS: salt irrigation nasal spray 45 ML SPRAY NS PRN (23:17)
[2021-02-16 02:00] VITALS: BP 139/79
[2021-02-16 06:00] VITALS: BP 147/96
[2021-02-16] MEDS ORDERED: DOXYCYCLINE 100MG CAPSULE PO SCH (08:30)
[2021-02-16] MEDS: docusate sod 100mg capsule PO SCH ×2 (09:42→19:23)
[2021-02-16] MEDS: DOXYCYCLINE 100MG CAPSULE PO SCH ×2 (09:42→17:05)
[2021-02-16] MEDS: enoxaparin 40mg/0.4ml syringe SUBCUT SCH ×2 (09:42→19:24)
[2021-02-16] MEDS: pantoprazole 40mg Tablet.DR PO SCH (09:42)
[2021-02-16] MEDS: dexamethasone 4mg/ml inj IV SCH (09:44)
[2021-02-16] MEDS: acetaminophen 325mg tablet PO PRN (09:59)
[2021-02-16 10:08] VITALS: BP 142/84
[2021-02-16 12:34] LABS: D-DIMER 0.27 MG/L FEU (0-0.50)
[2021-02-16 13:00] VITALS: BP_SYST 6
[2021-02-16 18:00] VITALS: BP 127/71
--- NOTE | 2021-02-16 18:23 | NUR ---
Report given to Kelly BARKLEY. All questions answered. Call out to Dr Zepeda who was in surgery to ask about plan for potential surgery. KALLIE Barkley will follow up. Pt up walking at times. No current pain, some complaints of bloating and acidic taste with burping. Addendum: 02/16/21 at 1826 by Laura Chan RN, RN Wrong patient, disregard
--- NOTE | 2021-02-16 18:33 | NUR ---
Patient in room ORTHO 4018. I have received report from TEETEE Sanchez and had the opportunity to ask questions and assume patient care.
--- NOTE | 2021-02-16 18:33 | NUR ---
Report given to Adia KINGSLEY. Patient awake and alert in room, sitting in bed, good o2 sats at this point, not dropping as much. Dr Castle updated. No current concerns, Adia KINGSLEY will continue trying to wean o2 as appropriate.
[2021-02-16] MEDS: sennosides/docusate sodium tablet PO SCH (19:23)
[2021-02-16 22:00] VITALS: BP 145/74
[2021-02-17] MEDS: acetaminophen 325mg tablet PO PRN ×2 (05:28→17:33)
[2021-02-17 05:50] VITALS: BP 143/88
--- NOTE | 2021-02-17 06:00 | NUR ---
Patient in room ORTHO 4018. I have received report from LAURA KINGSLEY and had the opportunity to ask questions and assume patient care.
--- NOTE | 2021-02-17 06:29 | NUR ---
Problems reprioritized. Patient report given, questions answered & plan of care reviewed with TEETEE Parada.
[2021-02-17 07:53] VITALS: BP 143/88
[2021-02-17] MEDS: enoxaparin 40mg/0.4ml syringe SUBCUT SCH ×2 (08:16→20:12)
[2021-02-17] MEDS: pantoprazole 40mg Tablet.DR PO SCH (08:17)
[2021-02-17] MEDS: DOXYCYCLINE 100MG CAPSULE PO SCH ×2 (08:17→17:33)
[2021-02-17] MEDS: docusate sod 100mg capsule PO SCH ×2 (08:17→20:11)
[2021-02-17] MEDS: dexamethasone 4mg/ml inj IV SCH (08:17)
--- NOTE | 2021-02-17 11:00 | NUR ---
O2 Sat at rest on room air: 78% If below 89%: Recovery O2 Sat at rest on 5LPM:88%:92% via 5 nasal cannula No further documentation is necessary.
--- NOTE | 2021-02-17 11:38 | NUR ---
PAGER ID: [phone] MESSAGE: [phone] tianna cao stated that he has his mom and brother that will help him at home. pt is on 5lnc and cannot be titrated at this point
--- NOTE | 2021-02-17 12:17 | NUR ---
O2 Sat at rest on room air:78% If below 89%: Recovery O2 Sat at rest on 5LPM:92%:via 5L nasal cannula No further documentation is necessary.
[2021-02-17] MEDS ORDERED: DOXY-224 PO (12:25)
[2021-02-17] MEDS ORDERED: DEXA4TAB68 PO (12:25)
[2021-02-17] MEDS ORDERED: ASPI-845 PO (12:25)
[2021-02-17 12:39] VITALS: BP 151/83
[2021-02-17 15:16] VITALS: BP 132/81
[2021-02-17 18:00] VITALS: BP 123/81
--- NOTE | 2021-02-17 18:47 | NUR ---
Patient in room ORTHO 4018. I have received report from TEETEE Parada and had the opportunity to ask questions and assume patient care.
[2021-02-17] MEDS: lactobacillus rhamnosus 10,000 MMU CELLS/CAPSULE PO SCH (20:11)
[2021-02-17] MEDS: sennosides/docusate sodium tablet PO SCH (20:14)
[2021-02-17 22:00] VITALS: BP 169/99
--- NOTE | 2021-02-18 06:20 | NUR ---
Problems reprioritized. Patient report given, questions answered & plan of care reviewed with TEETEE Painting.
--- NOTE | 2021-02-18 06:35 | NUR ---
Patient in room ORTHO 4018. I have received report from Terence KINGSLEY and had the opportunity to ask questions and assume patient care.
[2021-02-18 06:54] VITALS: BP 132/89
[2021-02-18] MEDS: docusate sod 100mg capsule PO SCH (08:00)
[2021-02-18] MEDS: enoxaparin 40mg/0.4ml syringe SUBCUT SCH (08:00)
[2021-02-18] MEDS: dexamethasone 4mg/ml inj IV SCH (08:53)
[2021-02-18] MEDS: pantoprazole 40mg Tablet.DR PO SCH (08:54)
[2021-02-18] MEDS: lactobacillus rhamnosus 10,000 MMU CELLS/CAPSULE PO SCH (08:54)
[2021-02-18] MEDS: DOXYCYCLINE 100MG CAPSULE PO SCH (08:54)
[2021-02-18 09:56] VITALS: BP 135/90
--- NOTE | 2021-02-18 10:13 | NUR ---
Called in prescriptions to [facility].
--- NOTE | 2021-02-18 13:09 | NUR ---
Went over discharge instructions with patient and his mother including follow up and signs and symptoms of pulmonary embolism and infection, patient verbalized understanding. Medications were called in to [facility] in [place], patient was instructed on when to take next dose of all meds. 20 gauge iv removed from left ac, cannula intact no s/s of phlebitis. Transported to private vehicle via wheelchair with no complications.
== END 2021-02-18 12:55 | disposition home or self-care (01) | DRG 137 ==
LOC: ER 21:11 → UNDOADMIN 02-05 01:03 → ED HOLD 02-05 01:03 → ORTHO 4S 02-05 04:08 → ED HOLD 02-05 04:08
PROVIDERS: ADMIT Family Medicine; ATTEND Internal Medicine
PROC: B32T1ZZ Computerized Tomography (CT Scan) of Left Pulmonary Artery using Low Osmolar Contrast (ICD-10-PCS; 2021-02-04)
PROC: B32S1ZZ Computerized Tomography (CT Scan) of Right Pulmonary Artery using Low Osmolar Contrast (ICD-10-PCS; 2021-02-04)
PROC: XW033E5 Introduction of Remdesivir Anti-infective into Peripheral Vein, Percutaneous Approach, New Technology Group 5 (ICD-10-PCS; principal; 2021-02-05)
PROC: 5A0935A Assistance with Respiratory Ventilation, Less than 24 Consecutive Hours, High Flow/Velocity Cannula (ICD-10-PCS; 2021-02-05)
PROC: 5A0935A Assistance with Respiratory Ventilation, Less than 24 Consecutive Hours, High Flow/Velocity Cannula (ICD-10-PCS; 2021-02-06)
PROC: 5A0935A Assistance with Respiratory Ventilation, Less than 24 Consecutive Hours, High Flow/Velocity Cannula (ICD-10-PCS; 2021-02-07)
PROC: 5A09357 Assistance with Respiratory Ventilation, Less than 24 Consecutive Hours, Continuous Positive Airway Pressure (ICD-10-PCS; 2021-02-08)
PROC: 5A09357 Assistance with Respiratory Ventilation, Less than 24 Consecutive Hours, Continuous Positive Airway Pressure (ICD-10-PCS; 2021-02-09)
PROC: 5A09357 Assistance with Respiratory Ventilation, Less than 24 Consecutive Hours, Continuous Positive Airway Pressure (ICD-10-PCS; 2021-02-10)
PROC: 5A0935A Assistance with Respiratory Ventilation, Less than 24 Consecutive Hours, High Flow/Velocity Cannula (ICD-10-PCS; 2021-02-11)
PROC: 5A0935A Assistance with Respiratory Ventilation, Less than 24 Consecutive Hours, High Flow/Velocity Cannula (ICD-10-PCS; 2021-02-12)
PROC: 5A09357 Assistance with Respiratory Ventilation, Less than 24 Consecutive Hours, Continuous Positive Airway Pressure (ICD-10-PCS; 2021-02-13)
PROC: 5A0935A Assistance with Respiratory Ventilation, Less than 24 Consecutive Hours, High Flow/Velocity Cannula (ICD-10-PCS; 2021-02-13)
PROC: 5A09357 Assistance with Respiratory Ventilation, Less than 24 Consecutive Hours, Continuous Positive Airway Pressure (ICD-10-PCS; 2021-02-14)
PROC: 5A0935A Assistance with Respiratory Ventilation, Less than 24 Consecutive Hours, High Flow/Velocity Cannula (ICD-10-PCS; 2021-02-14)
PROC: 5A0935A Assistance with Respiratory Ventilation, Less than 24 Consecutive Hours, High Flow/Velocity Cannula (ICD-10-PCS; 2021-02-15)
PROC: 5A0935A Assistance with Respiratory Ventilation, Less than 24 Consecutive Hours, High Flow/Velocity Cannula (ICD-10-PCS; 2021-02-16)
DX: U07.1 COVID-19 (principal); J96.01 Acute respiratory failure with hypoxia; J12.82 Pneumonia due to coronavirus disease 2019; E66.01 Morbid (severe) obesity due to excess calories; D75.1 Secondary polycythemia; Z68.42 Body mass index [BMI] 45.0-49.9, adult; E03.9 Hypothyroidism, unspecified; F12.90 Cannabis use, unspecified, uncomplicated; F41.9 Anxiety disorder, unspecified; G47.33 Obstructive sleep apnea (adult) (pediatric); I10 Essential (primary) hypertension; Z79.82 Long term (current) use of aspirin
CPT/HCPCS: 36415; 36600; 71045; 71275; 80053; 80061; 80305; 81001; 82803; 82948; 83036; 83605; 83615; 83735; 83880; 84100; 84145; 84443; 85018; 85025; 85379; 85384; 86140; 87040; 87070; 87077; 87081; 87186; 93005; 94640; 94660; 94667; 94668; 94760; 97110; 97161; 99285; G0378; J0456; J0696; J1100; J1644; J1650; J2270; J7030; Q9967